=== PATIENT | female | born 1980 | race Caucasian/White ===

== ENCOUNTER 2025-06-25 09:46 | Inpatient (IN) | payer BC, MEDICAID ==
[~2025-06-25] VITALS: Ht 162.6 cm; Wt 93.0 kg
[2025-06-25 10:00] VITALS: O2SAT 97
[2025-06-25 10:25] LABS: PLATELET COUNT (AUTO) 466 K/uL (150-450); RED BLOOD CELL COUNT(AUTO) 4.48 MIL/uL (4.0-5.2); RED CELL DISTRIBUTION WIDTH 17.7 % (11.5-15.0); WHITE BLOOD COUNT (AUTO) 10.7 K/uL (4.3-11.0)
[2025-06-25 10:31] LABS: CALCIUM, SERUM 8.8 mg/dL (8.5-10.1); CREATININE 0.7 mg/dL (0.6-1.3); SODIUM SERUM 132.0 mmol/L (136-145); UREA NITROGEN, BLOOD 17.0 mg/dL (7-18)
[2025-06-25] MEDS ORDERED: LIDOCAINE VISCOUS 2% UD 15 ML UDC ONE (10:34)
[2025-06-25] MEDS ORDERED: ONDANSETRON HCL/PF 4 MG/2 ML VIAL ONE (10:34)
[2025-06-25] MEDS ORDERED: MAG HYDROX/AL HYDROX/SIMETH 30 ML UDC ONE (10:34)
[2025-06-25 10:37] LABS: ASPARTATE AMINOTRANSFERASE 22.0 U/L (15-37); TOTAL PROTEIN, SERUM 8.2 g/dL (6.4-8.2)
[2025-06-25] MEDS ORDERED: MORPHINE SULFATE INJ 4 MG/ML DISP.SYRIN ONE (10:40)
[2025-06-25] MEDS ORDERED: FAMOTIDINE/PF INJ 20 MG/2 ML VIAL IV ONE (10:40)
[2025-06-25] MEDS: IV NS 0.9% 1,000 ML BAG IV ONE (10:45)
[2025-06-25] MEDS: MORPHINE SULFATE INJ 2 MG/ML DISP.SYRIN IV ONE (10:46)
[2025-06-25] MEDS: FAMOTIDINE/PF INJ 20 MG/2 ML VIAL IV ONE (10:47)
[2025-06-25] MEDS: MAG HYDROX/AL HYDROX/SIMETH 30 ML UDC PO ONE (10:47)
[2025-06-25] MEDS: LIDOCAINE VISCOUS 2% UD 15 ML UDC MM ONE (10:47)
[2025-06-25] MEDS: ONDANSETRON HCL/PF 4 MG/2 ML VIAL IVP ONE (10:47)
[2025-06-25] MEDS: HYDROMORPHONE 1 MG/1 ML DISP.SYRIN IV ONE (11:45)
[2025-06-25] MEDS: METOCLOPRAMIDE HCL 10 MG/2 ML VIAL IV ONE (12:52)
[2025-06-25] MEDS: DICYCLOMINE HCL INJ 20 MG/2 ML AMPUL IM ONE (12:52)
[2025-06-25] MEDS ORDERED: HALOPERIDOL LACTATE INJ 5 MG/ML VIAL ONE (13:24)
[2025-06-25] MEDS: HALOPERIDOL LACTATE INJ 5 MG/ML VIAL IV ONE (13:27)
[2025-06-25 13:41] LABS: APPEARANCE,URINE TURBID (CLEAR)
[2025-06-25 13:43] LABS: PREGNANCY TEST URINE QUAL NEGATIVE (NEGATIVE)
[2025-06-25 13:55] LABS: AMPHETAMINE, URINE NEGATIVE (NEGATIVE); BARBITURATE, URINE NEGATIVE (NEGATIVE); BENZODIAZEPINE, URINE NEGATIVE (NEGATIVE); CANNABINOID, URINE POSITIVE (NEGATIVE); COCCAINE, URINE NEGATIVE (NEGATIVE); OPIATE, URINE POSITIVE (NEGATIVE)
[2025-06-25] MEDS ORDERED: BUPR1TAB45 SL (14:01)
[2025-06-25] MEDS ORDERED: BUPR-319 PO (14:01)
[2025-06-25] MEDS ORDERED: ATOM40CA7 PO (14:01)
[2025-06-25] MEDS ORDERED: TRAZ-257 PO (14:01)
[2025-06-25] MEDS ORDERED: MAG HYDROX/AL HYDROX/SIMETH 30 ML UDC PO PRN (14:30)
[2025-06-25] MEDS ORDERED: MAGNESIUM HYDROXIDE 30 ML UDC PO PRN (14:30)
[2025-06-25] MEDS ORDERED: Z GUARD REMEDY 4 OZ OINT TP PRN (14:30)
[2025-06-25] MEDS: ACETAMINOPHEN 325 MG TABLET PO PRN (15:28)
[2025-06-25] MEDS: IV NS 0.9% 1,000 ML IV PRN (15:45)
[2025-06-25 16:12] VITALS: BP 123/79; TEMP 98.2; O2SAT 96
[2025-06-25] MEDS: PANTOPRAZOLE 40 MG VIAL IV SCH (16:14)
[2025-06-25 20:00] VITALS: BP 90/61; TEMP 98.4; O2SAT 96
[2025-06-25] MEDS ORDERED: [UNRECOGNIZED DRUG - OTHER] SL SCH (21:00)
[2025-06-25] MEDS ORDERED: BUPRENORPHINE HCL SL SCH (21:00)
[2025-06-25] MEDS ORDERED: NALOXONE HCL SL SCH (21:00)
[2025-06-25] MEDS: TRAZODONE 50 MG TABLET PO SCH (21:32)
[2025-06-25] MEDS: DICYCLOMINE HCL 10 MG CAPSULE PO SCH (23:39)
[2025-06-26] MEDS ORDERED: DICYCLOMINE HCL INJ 20 MG/2 ML AMPUL IM SCH
[2025-06-26 06:37] LABS: PLATELET COUNT (AUTO) 452 K/uL (150-450); RED BLOOD CELL COUNT(AUTO) 4.06 MIL/uL (4.0-5.2); RED CELL DISTRIBUTION WIDTH 17.4 % (11.5-15.0); WHITE BLOOD COUNT (AUTO) 8.4 K/uL (4.3-11.0)
[2025-06-26 07:07] LABS: CALCIUM, SERUM 8.3 mg/dL (8.5-10.1); CREATININE 0.8 mg/dL (0.6-1.3); PHOSPHORUS 3.0 mg/dL (2.5-4.9); SODIUM SERUM 138.0 mmol/L (136-145); UREA NITROGEN, BLOOD 16.0 mg/dL (7-18)
[2025-06-26 08:00] VITALS: BP 111/71; TEMP 97.9; O2SAT 94
[2025-06-26] MEDS: BUPROPION XL 150 MG TAB.ER.24 PO SCH (08:41)
[2025-06-26] MEDS: POTASSIUM CHLORIDE 20 MEQ POWDER PACKET PO ONE (11:02)
[2025-06-26 16:52] VITALS: BP 102/60; TEMP 98.4; O2SAT 97
[2025-06-26 20:00] VITALS: BP 109/63; TEMP 97.7; O2SAT 97
[2025-06-27] MEDS: ONDANSETRON HCL/PF 4 MG/2 ML VIAL IVP PRN (02:59)
[2025-06-27 07:51] LABS: CALCIUM, SERUM 7.7 mg/dL (8.5-10.1); CREATININE 0.8 mg/dL (0.6-1.3); PHOSPHORUS 2.8 mg/dL (2.5-4.9); SODIUM SERUM 139.0 mmol/L (136-145); UREA NITROGEN, BLOOD 13.0 mg/dL (7-18)
[2025-06-27 09:03] VITALS: BP 116/70; TEMP 97.9; O2SAT 98
[2025-06-27] MEDS: PANTOPRAZOLE 40 MG TABLET.DR PO SCH (09:09)
== END 2025-06-27 12:20 | DRG 446 ==
LOC: ER 09:53 → MED 14:14
PROVIDERS: ADMIT Internal Medicine; ATTEND Internal Medicine
DX: K80.20 Calculus of gallbladder without cholecystitis without obstruction (principal); F12.988 Cannabis use, unspecified with other cannabis-induced disorder; K82.8 Other specified diseases of gallbladder; R31.9 Hematuria, unspecified; Z79.899 Other long term (current) drug therapy
CPT/HCPCS: 36415; 76705-TC; 80048-TC; 80076-TC; 81001; 83690-TC; 83735-TC; 84100-TC; 84703-TC; 85025-TC; A4223; G0378; J0500; J1171; J1200; J1308; J1630; J2270; J2405; J2470; J2765; J7030